=== PATIENT | female | born 1985 | race Caucasian/White ===

== ENCOUNTER 2021-10-27 23:43 | Emergency (ER) | payer OTHER ==
[~2021-10-27] VITALS: Ht 154.9 cm; Wt 90.9 kg
--- NOTE | 2021-10-27 23:58 | PHYS DOC ---
General Adult EDM: Chief Complaint: CHEST WALL PAIN HPI: HPI: Patient is a 36 year old female who presents with report of 1 episode of brief squeezing left-sided chest pressure. She reports the symptoms lasted seconds and then resolved. They remain resolved now. She reports that she has had constant sharp mid and left-sided chest pain for several months. She reports that she was diagnosed with costochondritis by her primary care physician. Symptoms have begun after she was holding her dog on a leash and the dog pulled away from her, and she felt instant pain at that time. That previous pain is reproduced with movement and palpation. No changes in that regard today. She does describe some pleuritic pain. She denies dyspnea, cough, hemoptysis. She denies dizziness or diaphoresis. She denies abdominal pain, no radiation of pain. Denies lower extremity pain or swelling. No recent travel history, no recent surgery, no recent trauma. Review of Systems: Review of Systems: Constitutional: Denies fever or chills. [] Eyes: Denies change in visual acuity. [] HENT: Denies nasal congestion or sore throat. [] Respiratory: Denies cough or shortness of breath. [] Cardiovascular: Chest pain. Denies peripheral edema. Denies dizziness or syncope. GI: Denies abdominal pain, nausea, vomiting Musculoskeletal: Denies back pain or joint pain. [] Integument: Denies rash. [] Neurologic: Denies headache, focal weakness or sensory changes. [] Psychiatric: Denies depression or anxiety. [] Heart Score: C/O Chest Pain: Yes HEART Score for Chest Pain: HEART Score for Chest Pain Response (Comments) Value History Slighlty/Non-Suspicious 0 ECG Normal 0 Age < 45 0 Risk Factors 1 or 2 Risk Factors 1 Total 1 Risk Factors: Risk Factors: DM, Current or recent (<one month) smoker, HTN, HLP, family history of CAD, obesity. Risk Scores: Score 0 - 3: 2.5% MACE over next 6 weeks - Discharge Home Score 4 - 6: 20.3% MACE over next 6 weeks - Admit for Clinical Observation Score 7 - 10: 72.7% MACE over next 6 weeks - Early Invasive Strategies Physical Exam: PE: Constitutional: Well developed, well nourished, no acute distress, non-toxic appearance. [] HENT: Normocephalic, atraumatic Eyes: Sclera are clear and anicteric Neck: Normal range of motion, no tenderness, supple, no stridor. Trachea midline, no JVD Cardiovascular:Heart rate regular rhythm, no murmur, +2 radial and +2 posterior tibial pulses bilaterally Lungs & Thorax: Bilateral breath sounds clear to auscultation, equal chest rise, no rales, rhonchi or wheezes. No stridor. Palpation of the left mid chest reproduces pain. No crepitus or subcutaneous emphysema. No chest wall deformity. Abdomen: Bowel sounds normal, soft, no tenderness, no masses, no pulsatile masses. [] Skin: Warm, dry, no erythema, no rash. [] Back: No tenderness, no CVA tenderness. [] Extremities: No tenderness, no cyanosis, no clubbing, ROM intact, no edema. No calf tenderness Neurologic: Alert and oriented X 3, normal motor function, normal sensory function, no focal deficits noted. [] Psychologic: Affect normal, judgement normal, mood normal. He is pleasant and cooperative. EKG: EKG: EKG is interpreted at 0005 Rhythm is sinus Rate is 99 bpm [place] is normal No STEMI Radiology/Procedures: Radiology/Procedures: IMAGING REPORT Signed PATIENT: CARLOS LEVIN ACCOUNT: [id number] : 1985 LOCATION: ER AGE: 36 SEX: F EXAM STATUS: DEP ER ORD. PHYSICIAN: LOGAN PRICE DO REASON: chest pain PROCEDURE: PORTABLE CHEST 1V EXAM: CHEST ONE VIEW. HISTORY: Chest pain. COMPARISON: None. FINDINGS: A frontal view of the chest is obtained. There are no confluent infiltrates. There is no pneumothorax or pleural effusion. The heart is not enlarged. IMPRESSION: 1. No confluent infiltrates. Electronically signed by: Lyle Nolasco MD (10/28/2021 5:54 AM) [facility] DICTATED and SIGNED BY: ROSA NOLASCO MD DATE: 10/28/21 [id number] 0 Course & Med Decision Making: Course & Med Decision Making Pertinent Labs and Imaging studies reviewed. (See chart for details) The patient declines pain medication at this time. Her EKG is unremarkable, troponins negative. Emergency department work-up is unremarkable for any acute life-threatening process. I discussed the findings, differential diagnosis and plan of care with her. No indication for further invasive exams, imaging, or admission at this time. She is told to follow-up with her primary care physician. She feels comfortable with the plan for going home. Return precautions are given. Donnie Disclaimer: Dragdiane Disclaimer: This electronic medical record was generated, in whole or in part, using a voice recognition dictation system. Departure Departure Impression: Primary Impression: Atypical chest pain Disposition: HOME / SELF CARE / HOMELESS Condition: GOOD Patient Instructions: Chest Pain (Nonspecific), Costochondritis Additional Instructions: You may continue taking [id number] ibuprofen, Tylenol, and you may use your cyclobenzaprine i.e. your muscle relaxer, as needed for severe pain, this is sedating medication so you may wish to take it at night. Return to the ER for more severe pain, shortness of breath, coughing up blood, fever, vomiting or for any other concerns. Follow-up with your primary care doctor. LOGAN PRICE DO Oct 27, 2021 23:58
[2021-10-28 00:37] LABS: BASO # 0.1 x10^3/uL (0.0-0.2); BASO % 1 % (0-3); EOS # 0.1 x10^3/uL (0.0-0.7); EOS % 1 % (0-3); HEMATOCRIT 40.3 % (36.0-47.0); HEMOGLOBIN 13.5 g/dL (12.0-15.5); LYMPH # 2.2 x10^3/uL (1.0-4.8); LYMPH % 20 % (24-48); MEAN CORPUSCULAR HEMOGLOBIN 30 pg (25-35); MEAN CORPUSCULAR HGB CONC 34 g/dL (31-37); MEAN CORPUSCULAR VOLUME 88 fL (79-100); MONO # 0.7 x10^3/uL (0.0-1.1); MONO % 6 % (0-9); NEUT # 8.1 x10^3/uL (1.8-7.7); NEUT % 73 % (31-73); PLATELET COUNT 324 x10^3/uL (140-400); RED BLOOD COUNT 4.57 x10^6/uL (3.50-5.40); RED CELL DISTRIBUTION WIDTH 13.1 % (11.5-14.5); WHITE BLOOD COUNT 11.2 x10^3/uL (4.0-11.0)
[2021-10-28 00:47] LABS: PREG TEST PT QUAL NEGATIVE (NEG)
[2021-10-28 00:49] LABS: CREATININE 0.7 mg/dL (0.6-1.0); GFR 95.2; POTASSIUM 3.4 mmol/L (3.5-5.1)
[2021-10-28 01:25] VITALS: BP 113/66
--- NOTE | 2021-10-28 05:27 | EKG ---
[facility] [address] [place] [address] Test Date: 2021-10-27 Test Time: 23:54:33 Pat Name: CARLOS LEVIN Department: Room: Gender: F Packing Inspector: : 1985 Requested By: LOGAN PRICE Order Number: [id number] Reading MD: Fran Phillips MD Measurements Intervals [place] Rate: 99 P: 81 TN: 118 QRS: 74 QRSD: 88 T: 19 QT: 338 QTc: 439 Interpretive Statements SINUS RHYTHM Electronically Signed On 10-31-2021 13:27:15 BLOCK SPLITTER OPERATOR by Fran Phillips MD
--- NOTE | 2021-10-28 05:57 | RAD ---
EXAM: CHEST ONE VIEW. HISTORY: Chest pain. COMPARISON: None. FINDINGS: A frontal view of the chest is obtained. There are no confluent infiltrates. There is no pneumothorax or pleural effusion. The heart is not en larged. IMPRESSION: 1. No confluent infiltrates. Electronically signed by: Lyle Nolasco MD (10/28/2021 5:54 AM) [facility]
== END 2021-10-28 01:49 | disposition home or self-care (01) ==
LOC: ER 23:43
DX: R07.89 Other chest pain (principal)
CPT/HCPCS: 36415; 71045; 80048; 83735; 83880; 84484; 84703; 85025; 85379; 93005; 99285